=== PATIENT | female | born 1960 | race Two or more races ===

== ENCOUNTER 2017-05-30 10:21 | Inpatient (IN) | payer MEDICAID ==
[~2017-05-30] VITALS: Ht 152.4 cm; Wt 49.9 kg
[2017-05-30] MEDS ORDERED: SODIUM CHLORIDE 0.9% 1,000 ML IVB ONE (11:09)
[2017-05-30] MEDS ORDERED: NOREPINEPHRINE 8 MG/250ML KIT 250 ML IV SCH (11:15)
[2017-05-30] MEDS: NOREPINEPHRINE 8 MG/250ML KIT 250 ML IV SCH (11:22)
[2017-05-30 11:52] LABS: Urine Bacteria FEW /hpf (None Seen); Urine Blood 3+ /uL (Negative); Urine Hyaline Cast MOD /lpf (0 - 2); Urine Mucus FEW (None Seen); Urine Specific Gravity 1.023 (1.001-1.035); Urine WBC 14 /hpf (0 - 5)
[2017-05-30 13:26] LABS: Hematocrit 29.4 % (36.0-46.0); Hemoglobin 9.6 g/dL (12.2-16.2); Mean Corpuscular Hemoglobin 28.6 pg (28.0-32.0); Mean Corpuscular Hgb Conc. 32.5 g/dL (32.0-36.0); Mean Corpuscular Volume 87.7 fL (80.0-100.0); Platelet Count (auto) 103 10^3/uL (140-450); Red Blood Cells 3.35 10^6/uL (4.0-5.20); Red Cell Distribution Width 17.6 % (11.8-14.3); White Blood Cell 8.4 10^3/uL (4.4-10.8)
[2017-05-30 13:42] LABS: INR 1.18 (0.9-1.15); Partial Thromboplastin Time 53.2 sec (22.64-33.71); Prothrombin Time 12.9 sec (9.37-12.3)
[2017-05-30 13:51] LABS: Basophils % (manual) 0 (0.0-2.0); Blast Cells 0; Eosinophils % (manual) 0 (0-7); Metamyelocytes % 0; Myelocytes % 0; Promyelocytes % 0; Reactive Lymphocytes 0
[2017-05-30 14:57] LABS: Band Neutrophils % (manual) 27; Lymphocytes % (manual) 5 (10.0-50.0); Monocytes % (manual) 2 (0-12)
[2017-05-30] MEDS ORDERED: MORPHINE SULFATE 4 MG/ML SYR/VIAL IV PRN (16:00)
[2017-05-30] MEDS ORDERED: LACTULOSE 20Gm/30ML SOLN PO PRN (16:00)
[2017-05-30] MEDS ORDERED: ALBUTEROL SULF 2.5 MG/0.5ML(0.5%) NEB SOLN NEB PRN (16:00)
[2017-05-30] MEDS ORDERED: PANTOPRAZOLE 40 MG/10 ML VIAL IV ONE (16:00)
[2017-05-30] MEDS ORDERED: LORazepam 2MG/ML-1ML VIAL IV PRN (16:00)
[2017-05-30] MEDS ORDERED: NITROGLYCERIN 0.4 MG SL TAB SL PRN (16:00)
[2017-05-30] MEDS ORDERED: OSELTAMIVIR 75 MG CAP PO ONE (16:30)
[2017-05-30] MEDS: SODIUM CHLORIDE 0.9% 1,000 ML IV SCH (16:51)
[2017-05-30 18:30] VITALS: BP 103/69
[2017-05-30 19:19] LABS: Hematocrit 39.8 % (36.0-46.0); Hemoglobin 12.5 g/dL (12.2-16.2); Mean Corpuscular Hemoglobin 27.9 pg (28.0-32.0); Mean Corpuscular Hgb Conc. 31.4 g/dL (32.0-36.0); Mean Corpuscular Volume 88.7 fL (80.0-100.0); Platelet Count (auto) 127 10^3/uL (140-450); Red Blood Cells 4.48 10^6/uL (4.0-5.20); Red Cell Distribution Width 17.6 % (11.8-14.3); White Blood Cell 24.3 10^3/uL (4.4-10.8)
[2017-05-30 19:30] LABS: Basophils % (manual) 0 (0.0-2.0); Blast Cells 0; Eosinophils % (manual) 0 (0-7); Metamyelocytes % 0; Myelocytes % 0; Promyelocytes % 0; Reactive Lymphocytes 0
[2017-05-30 19:40] LABS: Amylase 26 U/L (25-115); Lipase 29 U/L (73-393)
[2017-05-30] MEDS ORDERED: PIPERACILLIN-TAZOB 3.375GM 50 ML IV ONE (19:45)
[2017-05-30 19:49] LABS: Potassium 4.5 mmol/L (3.5-5.1)
[2017-05-30 19:50] LABS: BUN/Creatinine Ratio 48.7; Calcium 8.9 mg/dL (8.5-10.1)
[2017-05-30 19:51] LABS: Albumin 0.8 g/dL (3.4-5.0); Bilirubin, Total 1.9 mg/dL (0.2-1.0); Total Protein 3.8 g/dL (6.4-8.2)
[2017-05-30 20:01] LABS: Magnesium 2.5 mg/dL (1.6-2.6)
[2017-05-30 21:45] LABS: Band Neutrophils % (manual) 41; Lymphocytes % (manual) 3 (10.0-50.0); Monocytes % (manual) 2 (0-12)
[2017-05-30] MEDS: metroNIDAZOLE 500MG/100ML 100 ML IV SCH (21:54)
[2017-05-30] MEDS: PANTOPRAZOLE 40 MG/10 ML VIAL IV SCH (21:54)
[2017-05-31] MEDS: SODIUM CHLORIDE 0.9% 1,000 ML IV SCH ×3 (00:03→16:22)
[2017-05-31] MEDS: PIPERACILLIN-TAZOB 3.375GM 50 ML IV SCH ×4 (00:19→18:10)
[2017-05-31 01:45] LABS: Hemoglobin 9.7 g/dL (12.2-16.2)
[2017-05-31 01:47] LABS: Hematocrit 30.2 % (36.0-46.0)
[2017-05-31] MEDS ORDERED: DIGOXIN (250MCG/ML) 2 ML AMPULE IV ONE (03:15)
[2017-05-31] MEDS: OSELTAMIVIR 75 MG CAP PO SCH ×2 (05:40→18:00)
[2017-05-31] MEDS: metroNIDAZOLE 500MG/100ML 100 ML IV SCH ×3 (05:40→22:00)
[2017-05-31 06:27] LABS: Hematocrit 33.2 % (36.0-46.0); Hemoglobin 10.6 g/dL (12.2-16.2)
[2017-05-31 08:19] LABS: Hematocrit 32.8 % (36.0-46.0); Hemoglobin 10.5 g/dL (12.2-16.2); Mean Corpuscular Hemoglobin 27.6 pg (28.0-32.0); Mean Corpuscular Hgb Conc. 31.9 g/dL (32.0-36.0); Mean Corpuscular Volume 86.7 fL (80.0-100.0); Platelet Count (auto) 70 10^3/uL (140-450); Red Blood Cells 3.78 10^6/uL (4.0-5.20); Red Cell Distribution Width 17.4 % (11.8-14.3)
[2017-05-31 08:33] LABS: Albumin 0.6 g/dL (3.4-5.0); BUN/Creatinine Ratio 43.5; Bilirubin, Total 1.4 mg/dL (0.2-1.0); Calcium 8.2 mg/dL (8.5-10.1); Potassium 3.6 mmol/L (3.5-5.1); Total Protein 3.3 g/dL (6.4-8.2)
[2017-05-31] MEDS ORDERED: cefTRIAXone 1GM/10ml IVPUSH 10 ML IV SCH (09:00)
[2017-05-31 09:06] LABS: White Blood Cell 34.8 10^3/uL (4.4-10.8)
[2017-05-31 09:08] LABS: Basophils % (manual) 0 (0.0-2.0); Blast Cells 0; Eosinophils % (manual) 0 (0-7); Metamyelocytes % 0; Myelocytes % 0; Promyelocytes % 0; Reactive Lymphocytes 0
[2017-05-31] MEDS: AZITHROMYCIN 500MG/ 250ML 250 ML IV SCH (09:31)
[2017-05-31] MEDS: PANTOPRAZOLE 40 MG/10 ML VIAL IV SCH ×2 (09:31→22:00)
[2017-05-31] MEDS ORDERED: PANTOPRAZOLE 40 MG/10 ML VIAL IV SCH (10:00)
[2017-05-31] MEDS ORDERED: VANCOMYCIN PER PHARMACY 0 MG IV SCH (10:00)
[2017-05-31] MEDS ORDERED: NALOXONE HCL 0.4 MG/ML VIAL ONE (10:18)
[2017-05-31] MEDS ORDERED: FLUMAZENIL 0.1 MG/ML INJ 10ML MDV IV ONE (10:18)
[2017-05-31] MEDS ORDERED: fentaNYL CITRATE 100 MCG/2 ML VL ONE (10:19)
[2017-05-31] MEDS ORDERED: diphenhdrAMINE HCL 50 MG/1 ML VL ONE (10:19)
[2017-05-31] MEDS ORDERED: LIDOCAINE VISCOUS 2% 15ML UD ONE (10:19)
[2017-05-31] MEDS ORDERED: MIDAZOLAM HCL 5 MG/ML-1ML VIAL ONE (10:19)
[2017-05-31] MEDS ORDERED: SODIUM CHLORIDE LOCK 10 ML ONE (10:23)
[2017-05-31] MEDS: NOREPINEPHRINE 8 MG/250ML KIT 250 ML IV SCH (11:22)
[2017-05-31 11:44] LABS: Band Neutrophils % (manual) 33; Lymphocytes % (manual) 3 (10.0-50.0); Monocytes % (manual) 1 (0-12)
[2017-05-31] MEDS: VANCOMYCIN 1GM/250ML 250 ML IV SCH (13:30)
[2017-06-01] MEDS: SODIUM CHLORIDE 0.9% 1,000 ML IV SCH ×3 (00:21→19:40)
[2017-06-01] MEDS: OSELTAMIVIR 75 MG CAP PO SCH ×2 (06:00→18:00)
[2017-06-01 06:04] LABS: Basophils # (auto) 0 uL; Basophils % (auto) 0.1 % (0.0-2.0); Lymphocytes # (auto) 0.8 uL; Monocytes # (auto) 0.3 uL; Monocytes % (auto) 1.3 % (0.0-12.0); Neutrophils % (auto) 94.3 % (37.0-80.0); White Blood Cell 19.8 10^3/uL (4.4-10.8)
[2017-06-01 06:07] LABS: Eosinophils # (auto) 0 uL; Eosinophils % (auto) 0.2 % (0.0-7.0); Hematocrit 33.9 % (36.0-46.0); Lymphocytes % (auto) 4.1 % (10.0-50.0); Mean Corpuscular Hemoglobin 28.6 pg (28.0-32.0); Mean Corpuscular Hgb Conc. 32.3 g/dL (32.0-36.0); Mean Corpuscular Volume 88.7 fL (80.0-100.0); Neutrophils # (auto) 18.6 uL; Platelet Count (auto) 52 10^3/uL (140-450); Red Blood Cells 3.83 10^6/uL (4.0-5.20); Red Cell Distribution Width 17.2 % (11.8-14.3)
[2017-06-01 06:15] LABS: Calcium 7.9 mg/dL (8.5-10.1); Potassium 3.6 mmol/L (3.5-5.1)
[2017-06-01 06:17] LABS: BUN/Creatinine Ratio 37.1
[2017-06-01] MEDS: metroNIDAZOLE 500MG/100ML 100 ML IV SCH ×2 (07:15→16:45)
[2017-06-01] MEDS: PIPERACILLIN-TAZOB 3.375GM 50 ML IV SCH ×4 (09:07→18:15)
[2017-06-01] MEDS: AZITHROMYCIN 500MG/ 250ML 250 ML IV SCH (11:40)
[2017-06-01] MEDS: VANCOMYCIN 1GM/250ML 250 ML IV SCH (11:40)
[2017-06-01] MEDS: PANTOPRAZOLE 40 MG/10 ML VIAL IV SCH ×2 (11:40→22:08)
[2017-06-01] MEDS: NOREPINEPHRINE 8 MG/250ML KIT 250 ML IV SCH (19:26)
[2017-06-02] MEDS: metroNIDAZOLE 500MG/100ML 100 ML IV SCH ×4 (00:19→22:02)
[2017-06-02] MEDS: PIPERACILLIN-TAZOB 3.375GM 50 ML IV SCH ×4 (01:34→17:49)
[2017-06-02] MEDS: SODIUM CHLORIDE 0.9% 1,000 ML IV SCH ×4 (03:44→23:54)
[2017-06-02] MEDS: MORPHINE SULFATE 4 MG/ML SYR/VIAL IV PRN ×2 (04:07→15:51)
[2017-06-02] MEDS: OSELTAMIVIR 75 MG CAP PO SCH ×2 (06:00→17:19)
[2017-06-02 09:38] LABS: Hemoglobin 12.2 g/dL (12.2-16.2)
[2017-06-02 09:40] LABS: Hematocrit 39.2 % (36.0-46.0)
[2017-06-02] MEDS: VANCOMYCIN 1GM/250ML 250 ML IV SCH (10:17)
[2017-06-02] MEDS: AZITHROMYCIN 500MG/ 250ML 250 ML IV SCH (10:17)
[2017-06-02] MEDS: PANTOPRAZOLE 40 MG/10 ML VIAL IV SCH ×2 (10:17→22:10)
[2017-06-02] MEDS: NOREPINEPHRINE 8 MG/250ML KIT 250 ML IV SCH (11:30)
[2017-06-02] MEDS: PROMETHAZINE HCL 25 MG/ML 1ML IV PRN ×2 (15:52→16:39)
[2017-06-02 21:06] LABS: Hemoglobin 8.7 g/dL (12.2-16.2); Mean Corpuscular Hemoglobin 28.1 pg (28.0-32.0); Mean Corpuscular Hgb Conc. 32.3 g/dL (32.0-36.0); Mean Corpuscular Volume 86.9 fL (80.0-100.0); Platelet Count (auto) 33 10^3/uL (140-450); Red Cell Distribution Width 17.3 % (11.8-14.3); White Blood Cell 14.6 10^3/uL (4.4-10.8)
[2017-06-02 21:21] LABS: Albumin 0.4 g/dL (3.4-5.0); BUN/Creatinine Ratio 45.3; Calcium 6.1 mg/dL (8.5-10.1); Potassium 3.2 mmol/L (3.5-5.1)
[2017-06-02 21:24] LABS: Total Protein 2.5 g/dL (6.4-8.2)
[2017-06-02 21:44] LABS: Band Neutrophils % (manual) 0; Basophils % (manual) 0 (0.0-2.0); Blast Cells 0; Eosinophils % (manual) 0 (0-7); Lymphocytes % (manual) 9 (10.0-50.0); Metamyelocytes % 0; Monocytes % (manual) 7 (0-12); Myelocytes % 0; Promyelocytes % 0; Reactive Lymphocytes 0
[2017-06-02] MEDS ORDERED: POTASSIUM CHL 20MEQ/100ML 100 ML IV ONE (22:45)
[2017-06-02 22:53] VITALS: BP 90/66
[2017-06-02] MEDS ORDERED: cefTRIAXone 1GM/10ml IVPUSH 10 ML IV ONE (23:45)
[2017-06-03] MEDS: PIPERACILLIN-TAZOB 3.375GM 50 ML IV SCH ×4 (00:20→18:00)
[2017-06-03] MEDS: MORPHINE SULFATE 4 MG/ML SYR/VIAL IV PRN ×3 (04:02→19:46)
[2017-06-03] MEDS: OSELTAMIVIR 75 MG CAP PO SCH ×2 (05:45→18:03)
[2017-06-03 08:07] LABS: Albumin 0.5 g/dL (3.4-5.0); BUN/Creatinine Ratio 39.7; Bilirubin, Total 1.1 mg/dL (0.2-1.0); Calcium 6.4 mg/dL (8.5-10.1); Potassium 3.7 mmol/L (3.5-5.1); Total Protein 2.9 g/dL (6.4-8.2)
[2017-06-03 08:14] LABS: Red Blood Cells 3.15 10^6/uL (4.0-5.20); Red Cell Distribution Width 17.3 % (11.8-14.3)
[2017-06-03 08:16] LABS: Hematocrit 27.5 % (36.0-46.0); Hemoglobin 8.9 g/dL (12.2-16.2); Mean Corpuscular Hemoglobin 28.3 pg (28.0-32.0); Mean Corpuscular Hgb Conc. 32.4 g/dL (32.0-36.0); Mean Corpuscular Volume 87.3 fL (80.0-100.0); Platelet Count (auto) 35 10^3/uL (140-450); White Blood Cell 15.2 10^3/uL (4.4-10.8)
[2017-06-03 08:37] LABS: Basophils % (manual) 0 (0.0-2.0); Eosinophils % (manual) 0 (0-7)
[2017-06-03 08:38] LABS: Blast Cells 0; Metamyelocytes % 0; Myelocytes % 0; Promyelocytes % 0; Reactive Lymphocytes 0
[2017-06-03] MEDS: PANTOPRAZOLE 40 MG/10 ML VIAL IV SCH ×2 (09:52→23:43)
[2017-06-03] MEDS: SODIUM CHLORIDE 0.9% 1,000 ML IV SCH ×3 (09:52→20:33)
[2017-06-03] MEDS: cefTRIAXone 1GM/10ml IVPUSH 10 ML IV SCH (09:52)
[2017-06-03] MEDS: ONDANSETRON HCL 4 MG/2 ML VIAL IV PRN ×3 (10:04→20:32)
[2017-06-03] MEDS: NOREPINEPHRINE 8 MG/250ML KIT 250 ML IV SCH (11:27)
[2017-06-03 11:50] LABS: Band Neutrophils % (manual) 10; Lymphocytes % (manual) 1 (10.0-50.0); Monocytes % (manual) 4 (0-12)
[2017-06-03] MEDS ORDERED: TPN PER PHARMACY 0 ML IV SCH (15:15)
[2017-06-03 15:31] LABS: Magnesium 1.9 mg/dL (1.6-2.6); Phosphorus 2.1 mg/dL (2.5-4.90)
[2017-06-03] MEDS ORDERED: PPN PER PHARMACY IV NR ×5 (20:00)
[2017-06-04] MEDS ORDERED: DEXTROSE (50%) 50ML SYRG IV SCH
[2017-06-04] MEDS: ACCU-CHEK COMFORT CURVE STRIP VI SCH ×2 (00:10→06:00)
[2017-06-04] MEDS: PIPERACILLIN-TAZOB 3.375GM 50 ML IV SCH ×2 (00:10→06:41)
[2017-06-04] MEDS: MORPHINE SULFATE 4 MG/ML SYR/VIAL IV PRN ×3 (01:32→14:46)
[2017-06-04] MEDS: InsuLIN REG 1unit/0.01ml Soln (100units/ml) SC SCH ×2 (06:00)
[2017-06-04 06:33] LABS: Albumin 0.7 g/dL (3.4-5.0); BUN/Creatinine Ratio 35.2; Bilirubin, Total 1.5 mg/dL (0.2-1.0); Calcium 7.2 mg/dL (8.5-10.1); Magnesium 2.3 mg/dL (1.6-2.6); Phosphorus 4.1 mg/dL (2.5-4.90); Potassium 4.6 mmol/L (3.5-5.1); Pre Albumin 7.6 mg/dL (20.0-40.0); Total Protein 4.2 g/dL (6.4-8.2)
[2017-06-04] MEDS: SODIUM CHLORIDE 0.9% 1,000 ML IV SCH (09:00)
[2017-06-04] MEDS: PANTOPRAZOLE 40 MG/10 ML VIAL IV SCH (09:18)
[2017-06-04] MEDS: cefTRIAXone 1GM/10ml IVPUSH 10 ML IV SCH (09:18)
[2017-06-04] MEDS: ONDANSETRON HCL 4 MG/2 ML VIAL IV PRN ×2 (10:51→14:46)
[2017-06-04] MEDS: ALBUMIN 25% 100 ML IV SCH ×2 (11:00→12:04)
[2017-06-04 15:00] VITALS: BP 102/48
[2017-06-04 17:00] VITALS: BP 109/66
[2017-06-04] MEDS ORDERED: TPN PER PHARMACY IV NR ×8 (20:00)
== END 2017-06-04 17:44 | disposition left against medical advice (07) | DRG 720 ==
LOC: ER 10:21 → EDBD 10:21 → TELE 10:22
PROVIDERS: ADMIT Internal Medicine; ATTEND Internal Medicine
PROC: 30233R1 Transfusion of Nonautologous Platelets into Peripheral Vein, Percutaneous Approach (ICD-10-PCS; 2017-05-30)
PROC: 30233N1 Transfusion of Nonautologous Red Blood Cells into Peripheral Vein, Percutaneous Approach (ICD-10-PCS; 2017-05-30)
PROC: 0W9G30Z Drainage of Peritoneal Cavity with Drainage Device, Percutaneous Approach (ICD-10-PCS; 2017-05-31)
PROC: 0DJ08ZZ Inspection of Upper Intestinal Tract, Via Natural or Artificial Opening Endoscopic (ICD-10-PCS; principal; 2017-05-31 09:45)
DX: A41.9 Sepsis, unspecified organism (principal); J96.00 Acute respiratory failure, unspecified whether with hypoxia or hypercapnia; R57.8 Other shock; J15.6 Pneumonia due to other Gram-negative bacteria; E43 Unspecified severe protein-calorie malnutrition; C16.9 Malignant neoplasm of stomach, unspecified; C78.6 Secondary malignant neoplasm of retroperitoneum and peritoneum; R18.8 Other ascites; Z66 Do not resuscitate; Z51.5 Encounter for palliative care; R65.21 Severe sepsis with septic shock; D62 Acute posthemorrhagic anemia; N39.0 Urinary tract infection, site not specified; D72.823 Leukemoid reaction; K20.9 Esophagitis, unspecified; K29.70 Gastritis, unspecified, without bleeding; Z53.21 Procedure and treatment not carried out due to patient leaving prior to being seen by health care provider; D63.8 Anemia in other chronic diseases classified elsewhere; Z68.21 Body mass index [BMI] 21.0-21.9, adult; Z85.028 Personal history of other malignant neoplasm of stomach; Z85.51 Personal history of malignant neoplasm of bladder
CPT/HCPCS: 10022; 36415; 36430; 43235; 49083; 51702; 70450; 71045; 74176; 76705; 76942; 80048; 80053; 80202; 81001; 82040; 82140; 82150; 82962; 83605; 83690; 83735; 83880; 84100; 84443; 84478; 84484; 85007; 85014; 85018; 85025; 85027; 85045; 85610; 85730; 86850; 86900; 86901; 86920; 87040; 87077; 87086; 87186; 87804; 93005; 96361; 96365; 96375; 99291; C9113; J2250; J2405; J2543; J3480; J3490; P9047